=== PATIENT | male | born 1985 | race Caucasian/White ===

== ENCOUNTER 2018-01-25 19:58 | Emergency (ER) | payer BC ==
--- NOTE | 2018-01-25 20:21 | Emergency Department Record ---
History of Present Illness - General Chief Complaint: Chest Pain Stated Complaint: CHEST PAIN Time Seen by Provider: 01/25/18 20:15 Source: Patient Mode of Arrival: Ambulatory Limitations: No limitations - History of Present Illness Initial Comments: 32 yo male presents to ED for evaluation of chest pain symptoms that began 3 days ago, does not worse with exertion per patient. Patient reports tingling to the LUE and face, denies extremity weakness symptoms. Patient does report increased stress and anxiety for the past 2 months, but denies anxiety attacks with these symptoms previously. Patient denies HTN, Cardiac, or previous history of DVT. Patient denies lower extremity edema symptoms. Patient does report recent activity shoveling, but denies ROM of the arm worsening his symptoms. MD Complaint: Chest pain Onset/Timin -: Days(s) Onset: During exertion Pain Location: Left chest Pain Radiation: LUE Severity: Moderate Severity scale (1-10): 4 Quality: Aching, Sharp Consistency: Intermittent Improves With: Nothing Worsens With: Exertion Context: Other Anginal Symptoms: Dyspnea, Nausea - Related Data Home Medications Medication Instructions Recorded Confirmed Last Taken No Home Med [NO HOME MEDS] 01/25/18 01/25/18 Unknown Allergies Allergy/AdvReac Type Severity Reaction Status Date / Time morphine Allergy veins Unverified 08/08/17 18:31 turn black. Travel Screening - Travel/Exposure Within Last 30 Days Have you traveled within the last 30 days?: No - Travel Symptoms Symptom Screening: Weakness Review of Systems Constitutional: Denies: Chills, Fever, Malaise, Night sweats Eyes: Denies: Eye discharge, Eye pain ENT: Denies: Congestion, Ear pain, Epistaxis Respiratory: Denies: Cough, Dyspnea Cardiovascular: Reports: Chest pain. Denies: Dyspnea on exertion Endocrine: Denies: Fatigue, Heat or cold intolerance Gastrointestinal: Denies: Abdominal pain, Nausea, Vomiting Genitourinary: Denies: Testicular pain, Testicular mass Musculoskeletal: Denies: Arthralgia, Back pain, Gout, Joint swelling Skin: Denies: Bruising, Change in color Neurological: Denies: Abnormal gait, Confusion, Headache, Seizure Psychiatric: Denies: Anxiety Hematological/Lymphatic: Denies: Anemia, Blood Clots Past Medical History - SOCIAL HISTORY Smoking Status: Current some day smoker Alcohol Use: Occasional Drug Use: None - RESPIRATORY Hx Respiratory Disorders: No - CARDIOVASCULAR Hx Cardio Disorders: No - NEURO Hx Neuro Disorders: No - GI Hx GI Disorders: No - Hx Genitourinary Disorders: No - ENDOCRINE Hx Endocrine Disorders: No - MUSCULOSKELETAL Hx Musculoskeletal Disorders: No - PSYCH Hx Psych Problems: No - HEMATOLOGY/ONCOLOGY Hx Hematology/Oncology Disorders: No Family Medical History Any Significant Family History?: Yes Family Hx Comment (NOT TO BE USED IN PLACE OF ITEMS BELOW): [employer]- "thyroid issues " (unknown if hypo or hyper) Hx Cancer: Grandparents Hx HTN: Father, Mother, Grandparents Physical Exam - General General Appearance: Alert, Oriented x3, Cooperative, No acute distress Limitations: No limitations - Head Head exam: Atraumatic, Normocephalic, Normal inspection Head exam detail: negative: Abrasion, Contusion, Schultz's sign, General tenderness, Hematoma, Laceration - Eye Eye exam: Normal appearance. negative: Conjunctival injection, Periorbital swelling, Periorbital tenderness, Scleral icterus - ENT Ear exam: negative: Auricular hematoma, Auricular trauma Nasal Exam: negative: Active bleeding, Discharge, Dried blood, Foreign body Mouth exam: negative: Drooling, Laceration, Muffled voice, Tongue elevation - Neck Neck exam: Normal inspection. negative: Meningismus, Tenderness - Respiratory Respiratory exam: Normal lung sounds bilaterally. negative: Rales, Respiratory distress, Rhonchi, Stridor - Cardiovascular Cardiovascular Exam: Regular rate, Normal rhythm, Normal heart sounds - GI/Abdominal GI/Abdominal exam: Soft. negative: Rebound, Rigid, Tenderness - Rectal Rectal exam: Deferred - exam: Deferred - Extremities Extremities exam: Normal inspection. negative: Calf tenderness, Pedal edema, Tenderness - Back Back exam: Denies: CVA tenderness (R), CVA tenderness (L) - Neurological Neurological exam: Alert, Normal gait, Oriented X3 - Psychiatric Psychiatric exam: Normal affect, Normal mood - Skin Skin exam: Normal color. negative: Abrasion Type of lesion: negative: abrasion Course Vital Signs 01/25/18 20:03 Temperature 98.3 F Pulse Rate 78 Respiratory 18 Rate Blood Pressure 143/83 Pulse Ox 97 - Reevaluation(s) Reevaluation #1: 01/25/18 20:22 EKG: NSR 85 Normal axis, normal intervals No acute ST-T wave changes PERC clinical decision rule was applied, and the patient does not have any of the following: -Age > 50 years -Pulse > 100 -Oxygen Saturation < 94% -History of Hemoptysis -Unilateral leg swelling -History or PE/DVT -Recent surgery or Trauma -Oral contraceptive/Hormone use Will initiate cardiac evaluation and apply HEART score following Troponin result. Reevaluation #2: 01/25/18 21:00 Laboratory studies were reviewed and are grossly unremarkable for an acute process. Patient was updated on his results thus far, and is resting comfortably at this time. Reevaluation #3: 01/25/18 22:40 Patient's HEART score is 0. Will repeat Troponin troponin at 23:10. Reevaluation #4: 01/25/18 23:31 Repeat Troponin is negative for myocardial injury. Patient appears stable for discharge at this time. Medical Decision Making - Lab Data Result diagrams: 01/25/18 20:10 01/25/18 20:10 Disposition Disposition: Discharge Clinical Impression: Atypical chest pain Disposition: Home, Self-Care Condition: (2) Stable Instructions: Chest Pain (ED) Additional Instructions: Return to ED if your symptoms worsen or if you have any concerns. Follow-up with your family doctor in 3-5 days as directed. Forms: Patient Portal Access Time of Disposition: 23:32 Quality - Quality Measures Quality Measures: N/A - Blood Pressure Screening Does Patient Have Any of the Following: No Blood Pressure Classification: Pre-Hypertensive BP Reading Systolic Measurement: 143 Diastolic Measurement: 83 Screening for High Blood Pressure: < Pre-Hypertensive BP, F/U Documented > [ [id number]] Pre-Hypertensive Follow-up Interventions: Referral to alternative/primary care provider.
[2018-01-25 20:23] LABS: BASO % 0.5 % (0-6); GRAN % 49.7 % (47-80); HEMATOCRIT 46.5 % (42.0-52.0); HEMOGLOBIN 16.5 gm/dl (14.0-18.0); LYMPH % 38.8 % (16-45); MEAN CELL VOLUME 84.5 fl (81-97); MEAN CORPUSCULAR HGB CONC 35.5 g/dl (32-36); MEAN PLATELET VOLUME 10.6 fl (7.4-10.4); PLATELET COUNT 228 K/uL (130-400); RED CELL DISTRIBUTION WIDTH 12.9 % (11.5-14.5); WHITE BLOOD COUNT W/O DIFF 6.1 K/uL (4.2-12.2)
[2018-01-25 20:31] LABS: BLOOD UREA NITROGEN 13 mg/dL (6-20); EST GLOMERULAR FILTRATION RATE > 60 mL/min
[2018-01-25 20:32] LABS: TOTAL PROTEIN 8.1 g/dL (6.6-8.7)
[2018-01-25 20:34] LABS: GLUCOSE,RANDOM 128 mg/dL (74-109)
[2018-01-25 20:36] LABS: ALB/GLOB RATIO 1.9 (1.1-1.8); ALBUMIN 5.3 g/dL (4.0-5.0); ALT/SGPT 18 U/L (<41); AST/SGOT 17 U/L (10.0-50.0)
[2018-01-25 20:37] LABS: ALKALINE PHOSPHATASE 71 U/L (40-129)
== END 2018-01-25 23:35 | disposition home or self-care (01) ==
LOC: ER 19:58
DX: R07.89 Other chest pain (principal); R20.2 Paresthesia of skin; R06.00 Dyspnea, unspecified; R11.0 Nausea; R42 Dizziness and giddiness; F17.210 Nicotine dependence, cigarettes, uncomplicated
CPT/HCPCS: 71046; 80053; 84484; 85025; 93005; 93010; 99284